=== PATIENT | male | born 1935 | race Caucasian/White ===

== ENCOUNTER → 2017-06-11 | Outpatient (CLI) | payer OTHER ==
[~2017-06-11] MED LIST: ASPI-110 PO; MULT-65 PO; PERC5TAB12 PO; SIMV40TA PO; ZETI10TA5 PO
--- NOTE | 2017-06-11 14:46 | RADRPT ---
EXAM DATE/TIME: 06/11/2017 12:50 [place] COMPARISON: No previous studies available for comparison. INDICATIONS : Evaluate for pneumonia, pneumothorax, or communicable disease. Pre op for EVAR revision. MEDICAL HISTORY : Aneurysm, abdominal. SURGICAL HISTORY : Stent. ENCOUNTER: Initial ACUITY: 1 day PAIN SCORE: 0/10 LOCATION: Bilateral chest FINDINGS: PA and lateral views of the chest demonstrate the lungs to be symmetrically aerated without evidence of mass, infiltrate or effusion. The cardiomediastinal contours are unremarkable. Osseous structure s are intact. CONCLUSION: No acute disease. Mando Bolaños MD on June 11, 2017 at 14:44 Board Certified Radiologist. This report was verified electronically.
--- NOTE | 2017-06-12 13:00 | EKG ---
Date Performed: 06/11/2017 Time Performed: 12:15:24 PTAGE: 82 years EKG: Sinus rhythm NORMAL ECG NO PREVIOUS TRACING DOCTOR: Bam Steele Interpretating Date/Time 06/12/2017 12:51:44
== END ==
LOC: CPRE 11:59
PROVIDERS: ATTEND Surgery
DX: Z01.810 Encounter for preprocedural cardiovascular examination (principal); Z01.812 Encounter for preprocedural laboratory examination; I71.4 Abdominal aortic aneurysm, without rupture; I72.3 Aneurysm of iliac artery
CPT/HCPCS: 71020; 93005

== ENCOUNTER 2017-06-23 06:08 | Inpatient (IN) | payer OTHER, MEDICARE ==
[~2017-06-23] VITALS: Ht 180.3 cm; Wt 76.0 kg
[2017-06-23] VITALS (14 sets, daily range): BP systolic 126–144; BP diastolic 64–75; PULSE 68–80; RESP 16–18; TEMP 97.5–99; O2SAT 95–98
[~2017-06-23 06:08] MED LIST changes: -PERC5TAB12 PO
[2017-06-23] MEDS ORDERED: THROMBIN (TOPICAL) 20,000 UNIT SPRAY KIT ONE (06:22)
[2017-06-23] MEDS ORDERED: BUPIVACAINE HCL PF 0.5% 30 ML VIAL ONE (06:22)
[2017-06-23] MEDS ORDERED: HEPARIN-NS/PF INJ 1,000 ML ONE (06:22)
[2017-06-23] MEDS ORDERED: PROTAMINE SULFATE 50 MG/5 ML VIAL ONE ×2 (06:28→11:17)
[2017-06-23] MEDS ORDERED: HEPARIN SODIUM - IV 10,000 UNITS/10 ML VIAL ONE (06:28)
[2017-06-23] MEDS ORDERED: SODIUM CHLORID 0.9% 500 ML IV PRN (06:30)
[2017-06-23] MEDS ORDERED: LACTATED RINGER'S 1000 ML IV PRN (06:30)
[2017-06-23] MEDS ORDERED: INSULIN HUMAN REGULAR 1,000 UNITS/10 ML VIAL SQ PRN (06:30)
[2017-06-23] MEDS ORDERED: CHLORHEXIDINE GLUCONATE 2 % 1 PACK (2 CLOTHS) TOPICAL PRN (06:30)
[2017-06-23] MEDS ORDERED: POVIDONE IODINE 5% (ANTISEPSIS KIT) 4 APPLICATIONS EACH NARE PRN (06:30)
[2017-06-23] MEDS ORDERED: METOPROLOL TARTRATE 25 MG TAB PO PRN (06:30)
[2017-06-23 07:39] LABS: AUTOMATED NEUTROPHIL # 3.3 TH/MM3 (1.8-7.7); BASOPHIL % 0.8 % (0.0-2.0); EOSINOPHIL # 0.2 TH/MM3 (0-0.4); EOSINOPHIL % 4.2 % (0.0-4.0); HEMATOCRIT 37.5 % (39.0-51.0); HEMO FLAGS DIFF FINAL; LYMPH % 27.6 % (9.0-44.0); LYMPHOCYTE # 1.6 TH/MM3 (1.0-4.8); MEAN CELL VOLUME 89.3 FL (80.0-100.0); MEAN CORPUSCULAR HEMOGLOBIN 30.3 PG (27.0-34.0); MEAN CORPUSCULAR HGB CONC 33.9 % (32.0-36.0); MONO % 8.9 % (0.0-8.0); NEUT % 58.5 % (16.0-70.0); PLATELET COUNT 101 TH/MM3 (150-450); RED CELL DISTRIBUTION WIDTH 13.4 % (11.6-17.2); WHITE BLOOD COUNT 5.7 TH/MM3 (4.0-11.0)
[2017-06-23] MEDS ORDERED: ACETAMINOPHEN 1000 MG/100 ML 100 ML IV ONE (08:16)
[2017-06-23] MEDS ORDERED: ceFAZolin 2 GM PREMIX 50 ML ONE (08:34)
--- NOTE | 2017-06-23 08:42 | HHI.HP ---
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 Presents for repair. During initial EVAR, had L hypo embolization so a plan has been devised to preserve RIGHT hypogastric artery potentially. Past/Family/Social History Past Medical History AAA HTN prostate CA Past Surgical History EVAR prostate CA surgery Social History not smoking Family History NC Home Medications Reported Medications Multiple Vitamin (Multi-Vitamin Daily) 1 Tab Tab, 1 TAB PO DAILY for Nutritional Supplement, TAB 0 Refills 06/11/[address] (Aspirin 81) 81 Mg Tabdr, 81 MG PO DAILY, TAB 0 Refills 06/11/17 Simvastatin (Simvastatin) 40 Mg Tab, 40 MG PO HS for Cholesterol Management, # 30 TAB 0 Refills 06/11/17 Ezetimibe (Zetia) 10 Mg Tab, 10 MG PO DAILY, #30 TAB 0 Refills 06/11/17 Coded Allergies: No Known Allergies (Unverified , 06/23/17) Review of Systems Constitutional: DENIES: Diaphoretic episodes, Fatigue, Fever, Weight gain, Weight loss, Chills, Dizziness, Change in appetite, Night Sweats Respiratory: DENIES: Apneas, Cough, Snoring, Wheezing, Hemoptysis, Sputum production, Shortness of breath Cardiovascular: DENIES: Chest pain, Palpitations, Syncope, Dyspnea on Exertion , PND, Lower Extremity Edema, Orthopnea, Claudication Physical Exam Vitals/I&O Date Time Temp Pulse Resp B/P (MAP) Pulse Ox O2 Delivery O2 Flow Rate FiO2 06/23/17 07:18 97.8 60 16 173/90 (117) 99 Neuro: alert, pleasant HEENT: NC/AT Neck: no JVD Heart: reg rate, no M Lungs: clear B Abdomen: lower midline incision healed Vascular: palpable B femoral pulses Extremities: R medial thigh bruise from plywood, skin intact Laboratory Tests Test 06/23/17 07:17 White Blood Count 5.7 Red Blood Count 4.20 Hemoglobin 12.7 Hematocrit 37.5 Mean Corpuscular Volume 89.3 Mean Corpuscular Hemoglobin 30.3 Mean Corpuscular Hemoglobin Concent 33.9 Red Cell Distribution Width 13.4 Platelet Count 101 Mean Platelet Volume 8.9 Neutrophils (%) (Auto) 58.5 Lymphocytes (%) (Auto) 27.6 Monocytes (%) (Auto) 8.9 Eosinophils (%) (Auto) 4.2 Basophils (%) (Auto) 0.8 Neutrophils # (Auto) 3.3 Lymphocytes # (Auto) 1.6 Monocytes # (Auto) 0.5 Eosinophils # (Auto) 0.2 Basophils # (Auto) 0.0 CBC Comment DIFF FINAL Differential Comment CTA reviewed Caprini VTE Risk Assessment Caprini VTE Risk Assessment: Mod/High Risk (score >= 2) Caprini Risk Assessment Model Point Value = 1 Point Value = 2 Point Value = 3 Point Value = 5 Age 41-60 Minor surgery BMI > 25 kg/m2 Swollen legs Varicose veins or History of unexplained or recurrent spontaneous Oral contraceptives or hormone replacement Sepsis (< 1 month) Serious lung disease, including pneumonia (< 1 month) Abnormal pulmonary function Acute myocardial infarction Congestive heart failure (< 1 month) History of inflammatory bowel disease Medical patient at bed rest Age 61-74 Arthroscopic surgery Major open surgery (> 45 min) Laparoscopic surgery (> 45 min) Malignancy Confined to bed (> 72 hours) Immobilizing plaster cast Central venous access Age >= 75 History of VTE Family history of VTE Factor V Leiden Prothrombin [id number] Lupus anticoagulant Anticardiolipin antibodies Elevated serum homocysteine Heparin-induced thrombocytopenia Other congenital or acquired thrombophilia Stroke (< 1 month) Elective arthroplasty Hip, pelvis, or leg fracture Acute spinal cord injury (< 1 month) Prophylaxis Regimen Total Risk Factor Score Risk Level Prophylaxis Regimen 0-1 Low Early ambulation 2 Moderate Order ONE of the following: *Sequential Compression Device (SCD) *Heparin 5000 units SQ BID 3-4 Higher Order ONE of the following medications: *Heparin 5000 units SQ TID *Enoxaparin/Lovenox 40 mg SQ daily (WT < 150 kg, CrCl > 30 mL/min) *Enoxaparin/Lovenox 30 mg SQ daily (WT < 150 kg, CrCl > 10-29 mL/min) *Enoxaparin/Lovenox 30 mg SQ BID (WT < 150 kg, CrCl > 30 mL/min) AND/OR *Sequential Compression Device (SCD) 5 or more Highest Order ONE of the following medications: *Heparin 5000 units SQ TID (Preferred with Epidurals) *Enoxaparin/Lovenox 40 mg SQ daily (WT < 150 kg, CrCl > 30 mL/min) *Enoxaparin/Lovenox 30 mg SQ daily (WT < 150 kg, CrCl > 10-29 mL/min) *Enoxaparin/Lovenox 30 mg SQ BID (WT < 150 kg, CrCl > 30 mL/min) AND *Sequential Compression Device (SCD) Assessment and Plan Plan complex EVAR with attempted hypogastric preservation To OR [phone] Discharge Planning likely 1-2 days Mando Mccray MD Jun 23, 2017 08:42
[2017-06-23] MEDS ORDERED: HYDROmorphone HCL 2 MG TAB PO PRN (11:45)
[2017-06-23] MEDS ORDERED: DO NOT ADM ANY ANTICOAGULANT DRUGS PRN (12:04)
--- NOTE | 2017-06-23 12:11 | HHI.PR ---
Immediate Post Op Note Procedure Date: Jun 23, 2017 Pre Op Diagnosis: R SISSY aneurysm Post Op Diagnosis: R SISSY aneurysm Surgeon: Mando Mccray [employer]el Locomotive Firer(s): Laverne Melendez Procedure: 1. Iliac branched EVAR with R hypogastric stent 2. R NUISANCE WILDLIFE SPECIALIST Perclose 3. L Axillary cutdown Findings: successful exclusion of iliac aneurysm with preservation of R hypogastric artery Additional Information: palpable L radial pulse and B Doppler signals in feet Complications: none apparent Specimen(s) removed: none Estimated blood loss: 50mL Anesthesia: General Drains: None Fluids: 1300mL x'oid; 300mL UOP IVF Patient to: PACU Patient Condition: Good Implant/Devices: SEE IMPLANT LOG (if applicable) Date/Time of Procedure: SEE SURGICAL CARE RECORD Mando Mccray MD Jun 23, 2017 11:44
[2017-06-23] MEDS ORDERED: D5-1/2 NS + KCL 20 MEQ INJ 1,000 ML IV SCH (13:30)
[2017-06-23] MEDS: DOCUSATE SODIUM 100 MG CAP PO SCH (20:38)
[2017-06-23] MEDS ORDERED: PRAVASTATIN SOD 80 MG TAB PO SCH (21:00)
[2017-06-24] VITALS (9 sets, daily range): BP systolic 130–154; BP diastolic 62–73; PULSE 68–84; RESP 12–16; TEMP 98.7–98.8; O2SAT 95–96
[2017-06-24 06:52] LABS: HEMATOCRIT 34.2 % (39.0-51.0); MEAN CORPUSCULAR HEMOGLOBIN 30.6 PG (27.0-34.0); PLATELET COUNT 93 TH/MM3 (150-450); RED CELL DISTRIBUTION WIDTH 13.5 % (11.6-17.2); WHITE BLOOD COUNT 7.2 TH/MM3 (4.0-11.0)
[2017-06-24 07:02] LABS: POTASSIUM 4.1 MEQ/L (3.5-5.1)
[2017-06-24 07:07] LABS: REVIEW FLAG FINAL
[2017-06-24] MEDS: DOCUSATE SODIUM 100 MG CAP PO SCH (08:49)
[2017-06-24] MEDS ORDERED: MULTIVITAMIN TAB PO SCH (09:00)
[2017-06-24] MEDS ORDERED: EZETIMIBE 10 MG TAB PO SCH (09:00)
[2017-06-24] MEDS ORDERED: ASPIRIN EC 81 MG TABEC PO SCH (09:00)
[2017-06-24] MEDS ORDERED: PERC5TAB12 PO (09:07)
--- NOTE | 2017-06-24 09:22 | PD.VS.PN ---
Subjective POD #: 1 Procedure(s): Iliac branched EVAR with R hypogastric stent R RESEARCH EDITOR Perclose L Axillary cutdown Subjective/Hospital Course Pt sitting in bed w/o complaints Young removed Pt denies abdominal/back pain Pt denies Right groin discomfort (no hematoma present) Objective Vitals/I&O Date Time Temp Pulse Resp B/P (MAP) Pulse Ox O2 Delivery O2 Flow Rate FiO2 06/24/17 07:00 70 06/24/17 06:00 68 06/24/17 05:00 78 06/24/17 04:00 76 06/24/17 03:00 74 06/24/17 03:00 98.8 81 12 130/62 (84) 95 06/24/17 02:00 78 06/24/17 01:30 16 06/24/17 01:00 76 06/24/17 00:00 76 06/23/17 23:00 80 06/23/17 23:00 99.0 69 16 134/66 (88) 95 06/23/17 22:00 76 06/23/17 21:00 74 06/23/17 20:00 72 06/23/17 19:45 97.6 69 16 144/75 (98) 98 06/23/17 19:00 74 06/23/17 18:00 72 142/75 (97) 06/23/17 18:00 68 06/23/17 17:30 74 139/74 (95) 06/23/17 17:00 72 139/69 (92) 06/23/17 16:30 76 135/70 (91) 06/23/17 16:15 74 126/71 (89) 06/23/17 16:00 76 130/67 (88) 06/23/17 15:45 74 126/64 (84) 06/23/17 15:30 74 06/23/17 15:30 97.5 75 18 138/72 (94) 97 06/23/17 15:20 97.5 74 16 120/59 (79) 95 Room Air 06/23/17 15:00 75 16 123/60 (81) 95 Room Air 06/23/17 14:00 77 16 122/60 (80) 95 Room Air 06/23/17 13:30 72 16 128/59 (82) 94 Room Air 06/23/17 13:15 74 16 130/57 (81) 94 Room Air 06/23/17 13:00 97.4 75 16 133/60 (84) 94 Room Air 06/23/17 12:45 71 15 139/64 (89) 100 Nasal Cannula 3 06/23/17 12:30 70 15 145/61 (89) 99 Nasal Cannula 3 06/23/17 12:15 74 15 137/60 (85) 98 Nasal Cannula 3 06/23/17 12:00 97.0 75 20 147/63 (91) 98 Nasal Cannula 3 131/59 (83) 06/24/17 06/24/17 06/24/17 07:00 15:00 23:00 Intake Total 480 ml Output Total 1250 ml Balance -770 ml Exam: GENERAL: Afebrile 82/W/M pleasant w/o complaints SKIN: Warm and dry Right groin w/o pain/swelling/hematoma Left axilla incision with surgical glue closure intact w/o S/R/P, mild ecchymosis present near incision line CARDIOVASCULAR: +S1,S2 RESPIRATORY: Breath sounds equal bilaterally. No accessory muscle use. GASTROINTESTINAL: Abdomen soft, non-tender, nondistended. Pt denies back/ abdominal pain Laboratory Laboratory Tests Test 06/24/17 05:30 White Blood Count 7.2 Red Blood Count 3.80 Hemoglobin 11.6 Hematocrit 34.2 Mean Corpuscular Volume 90.0 Mean Corpuscular Hemoglobin 30.6 Mean Corpuscular Hemoglobin Concent 34.0 Red Cell Distribution Width 13.5 Platelet Count 93 Mean Platelet Volume 9.0 Blood Urea Nitrogen 14 Creatinine 1.17 Random Glucose 118 Calcium Level 8.2 Sodium Level 141 Potassium Level 4.1 Chloride Level 108 Carbon Dioxide Level 27.0 Anion Gap 6 Estimat Glomerular Filtration Rate 60 Assessment and Plan Plan POD 1 Iliac branched EVAR with R hypogastric stent Presents well w/o complaints or complications Plan D/C today after voiding (post catheter removal)/ per protocol Arranged post op f/u with a surveillance CTA a/p Reviewed post operative d/c instructions w/ patient Call if patient unable to void (six hours post cath removal) Estefany ARAGON [facility]/[place] [phone] Discharge Planning Today (home) Estefany Garcia Jun 24, 2017 09:22
--- NOTE | 2017-06-24 09:30 | PD.VS.DC ---
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 Presents for repair. During initial EVAR, had L hypo embolization so a plan has been devised to preserve RIGHT hypogastric artery potentially. Procedure(s): liac branched EVAR with R hypogastric stent R SITE COORDINATOR Perclose L Axillary cutdown Significant Findings GENERAL: Afebrile 82/W/M pleasant w/o complaints SKIN: Warm and dry Right groin w/o pain/swelling/hematoma Left axilla incision with surgical glue closure intact w/o S/R/P, mild ecchymosis present near incision line CARDIOVASCULAR: +S1,S2 RESPIRATORY: Breath sounds equal bilaterally. No accessory muscle use. GASTROINTESTINAL: Abdomen soft, non-tender, nondistended. Pt denies back/ abdominal pain Laboratory Tests Test 06/23/17 07:17 06/24/17 05:30 Red Blood Count 4.20 MIL/MM3 (4.50-5.90) 3.80 MIL/MM3 (4.50-5.90) Hemoglobin 12.7 GM/DL (13.0-17.0) 11.6 GM/DL (13.0-17.0) Hematocrit 37.5 % (39.0-51.0) 34.2 % (39.0-51.0) Platelet Count 101 TH/MM3 (150-450) 93 TH/MM3 (150-450) Monocytes (%) (Auto) 8.9 % (0.0-8.0) Eosinophils (%) (Auto) 4.2 % (0.0-4.0) Random Glucose 118 MG/DL (74-106) Calcium Level 8.2 MG/DL (8.5-10.1) Chloride Level 108 MEQ/L (98-107) Estimat Glomerular Filtration Rate 60 ML/MIN (>89) Hospital Course: 82 yo male with EVAR several years ago at OSH and 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 Presents for repair. During initial EVAR, had L hypo embolization so a plan has been devised to preserve RIGHT hypogastric artery potentially. Pt s/p POD 1 Iliac branched EVAR with R hypogastric stent/R SITE COORDINATOR Perclose/L Axillary cutdown Pt doing well w/o complications Denies abdominal/back pain Arranged post op follow up Allergies Coded Allergies Type Severity Reaction Last Updated Verified No Known Allergies 06/23/17 No 06/22/17 06/22/17 06/23/17 06/23/17 06/24/17 06/24/17 06:00 18:00 06:00 18:00 06:00 18:00 Intake Total 1785 ml 480 ml Output Total 1500 ml 1250 ml Balance 285 ml -770 ml Intake Oral 200 ml 480 ml IV Total 285 ml Other 1300 ml Output Urine Total 1450 ml 1250 ml Estimated Blood Loss 50 ml # Bowel Movements 0 Laboratory Tests Test 06/23/17 07:17 06/24/17 05:30 White Blood Count 5.7 TH/MM3 7.2 TH/MM3 Red Blood Count 4.20 MIL/MM3 3.80 MIL/MM3 Hemoglobin 12.7 GM/DL 11.6 GM/DL Hematocrit 37.5 % 34.2 % Mean Corpuscular Volume 89.3 FL 90.0 FL Mean Corpuscular Hemoglobin 30.3 PG 30.6 PG Mean Corpuscular Hemoglobin Concent 33.9 % 34.0 % Red Cell Distribution Width 13.4 % 13.5 % Platelet Count 101 TH/MM3 93 TH/MM3 Mean Platelet Volume 8.9 FL 9.0 FL Neutrophils (%) (Auto) 58.5 % Lymphocytes (%) (Auto) 27.6 % Monocytes (%) (Auto) 8.9 % Eosinophils (%) (Auto) 4.2 % Basophils (%) (Auto) 0.8 % Neutrophils # (Auto) 3.3 TH/MM3 Lymphocytes # (Auto) 1.6 TH/MM3 Monocytes # (Auto) 0.5 TH/MM3 Eosinophils # (Auto) 0.2 TH/MM3 Basophils # (Auto) 0.0 TH/MM3 CBC Comment DIFF FINAL Differential Comment Blood Urea Nitrogen 14 MG/DL Creatinine 1.17 MG/DL Random Glucose 118 MG/DL Calcium Level 8.2 MG/DL Sodium Level 141 MEQ/L Potassium Level 4.1 MEQ/L Chloride Level 108 MEQ/L Carbon Dioxide Level 27.0 MEQ/L Anion Gap 6 MEQ/L Estimat Glomerular Filtration Rate 60 ML/MIN Orders Procedure Category Date Status Time Heparin-Ns/Pf Inj MED 06/23/17 Complete (Heparin-Ns/Pf Inj) 06:22 Bupivacaine Pf 0.5% MED 06/23/17 Complete Inj (Marcaine Pf 0.5 06:22 Thrombin Top Irving MED 06/23/17 Complete (Thrombin Top Irving) 06:22 Type And Screen BBK 06/23/17 Complete 06:25 Complete Blood Count LAB 06/23/17 Complete With Diff 06:25 Heparin Inj (Heparin MED 06/23/17 Complete Inj) 06:28 Protamine Sulfate Inj MED 06/23/17 Complete (Protamine Sulfate 06:28 Lactated Ringer's MED 06/23/17 Complete 1000 Ml Inj (Lr 1000 M 06:30 Sodium Chlorid 0.9% MED 06/23/17 Complete 500 Ml Inj (Ns 500 M 06:30 Metoprolol Tartrate MED 06/23/17 In Process (Lopressor) 06:30 Povidone Iod 5% MED 06/23/17 In Process Antisepsis Kit 06:30 Chlorhexidine 2% MED 06/23/17 In Process Cloth (Chlorhexidine 06:30 Insulin Human Regular MED 06/23/17 In Process Inj (Novolin R Inj 06:30 Red Blood Cells (Rbc) BBK 06/23/17 In Process 07:06 Endovascular Cath CATH 06/23/17 Logged Acetaminophen 1000 MED 06/23/17 Complete Mg/100 Ml (Ofirmev 10 08:16 Cefazolin 2 Gm Premix MED 06/23/17 Complete (Ancef 2 Gm Premix 08:34 Urinary Catheter KATIE 06/23/17 Complete Management 09:41 Am Admit Pre Op Care [facility] 06/23/17 Complete Protamine Sulfate Inj MED 06/23/17 Complete (Protamine Sulfate 11:17 Admit To Inpatient ADMITTING 06/23/17 Transmitted Code Status CODE 06/23/17 Transmitted 11:44 Vital Signs (Adult) KATIE 06/23/17 In Process 11:44 [place] / KATIE 06/23/17 Complete Telemetry 11:44 Activity Oob Ad Virgie KATIE 06/24/17 In Process 08:00 Activity Bed Rest KATIE 06/23/17 In Process 11:[address] Chavez KATIE 06/23/17 In Process 11:44 Precautions KATIE 06/23/17 In Process 11:44 Diet Heart Healthy DIET 06/23/17 Transmitted Lunch Basic Metabolic Panel LAB 06/24/17 Complete (Bmp) 06:00 Cbc No Diff, Includes LAB 06/24/17 Complete Plts 06:00 D5-1/2 Ns + Kcl 20 MED 06/23/17 In Process Meq Inj (D5-1/2 Ns + 13:30 Oxycodone (Roxicodone) MED 06/23/17 In Process 11:45 Hydromorphone MED 06/23/17 In Process (Dilaudid) 11:45 Docusate Sodium MED 06/23/17 In Process (Colace) 21:00 Scd Bilateral/Knee KATIE 06/23/17 In Process High 11:44 Inpatient ADMITTING 06/23/17 Transmitted Certification Remove Urinary KATIE 06/24/17 In Process Catheter 06:00 Aspirin Ec (Ecotrin MED 06/24/17 In Process Ec) 09:00 Ezetimibe (Zetia) MED 06/24/17 In Process 09:00 Multivitamin MED 06/24/17 In Process (Theragran) 09:00 Pravastatin MED 06/23/17 In Process (Pravachol) 21:00 Venipuncture [facility] 06/23/17 Complete Enoxaparin Inj MED 06/24/17 In Process (Lovenox Inj) 11:00 Misc Nursing MED 06/23/17 In Process Information 12:04 Class Iv [facility]17 Complete MIN General/Pacu [facility] 06/23/17 Complete Post Anesthesia Oxygen [facility] 06/23/17 Complete Pacu Cpcu Holding [facility] 06/23/17 Complete Hourly Instruction [facility] 06/24/17 In Process 05:16 Attending Discharge DISCHARGE 06/24/17 Transmitted Order (Hub Use Only)Inp Phy CONS 06/24/17 Transmitted Cons/Ref Vital Signs Date Time Temp Pulse Resp B/P (MAP) Pulse Ox O2 Delivery O2 Flow Rate FiO2 06/24/17 07:00 70 06/24/17 06:00 68 06/24/17 05:00 78 06/24/17 04:00 76 06/24/17 03:00 74 06/24/17 03:00 98.8 81 12 130/62 (84) 95 06/24/17 02:00 78 06/24/17 01:30 16 06/24/17 01:00 76 06/24/17 00:00 76 06/23/17 23:00 80 06/23/17 23:00 99.0 69 16 134/66 (88) 95 06/23/17 22:00 76 06/23/17 21:00 74 06/23/17 20:00 72 06/23/17 19:45 97.6 69 16 144/75 (98) 98 06/23/17 19:00 74 06/23/17 18:00 72 142/75 (97) 06/23/17 18:00 68 06/23/17 17:30 74 139/74 (95) 06/23/17 17:00 72 139/69 (92) 06/23/17 16:30 76 135/70 (91) 06/23/17 16:15 74 126/71 (89) 06/23/17 16:00 76 130/67 (88) 06/23/17 15:45 74 126/64 (84) 06/23/17 15:30 74 06/23/17 15:30 97.5 75 18 138/72 (94) 97 06/23/17 15:20 97.5 74 16 120/59 (79) 95 Room Air 06/23/17 15:00 75 16 123/60 (81) 95 Room Air 06/23/17 14:00 77 16 122/60 (80) 95 Room Air 06/23/17 13:30 72 16 128/59 (82) 94 Room Air 06/23/17 13:15 74 16 130/57 (81) 94 Room Air 06/23/17 13:00 97.4 75 16 133/60 (84) 94 Room Air 06/23/17 12:45 71 15 139/64 (89) 100 Nasal Cannula 3 06/23/17 12:30 70 15 145/61 (89) 99 Nasal Cannula 3 06/23/17 12:15 74 15 137/60 (85) 98 Nasal Cannula 3 06/23/17 12:00 97.0 75 20 147/63 (91) 98 Nasal Cannula 3 131/59 (83) 06/23/17 07:18 97.8 60 16 173/90 (117) 99 Discharge Condition: Good Discharge Disposition: Discharge Home Discharge Instructions: Activities as tolerated May shower tomorrow am Do not apply any creams or ointments to L axillary incision Leave incision open to air Report right groin swelling or sudden onset pain Report any new onset redness/drainage/fever or chills Report new onset abdominal/back pain Call the office with any questions or concerns Follow up in 1M with a surveillance CTA A/P Estefany ARAGON [facility]/[place] [phone] Any questions or concerns: Call [facility] [phone] Estefany Garcia Jun 24, 2017 09:30
[2017-06-24] MEDS ORDERED: ENOXAPARIN SODIUM 30 MG/0.3 ML SYRINGE SQ SCH (11:00)
--- NOTE | 2017-06-24 23:03 | MP ---
cc: GABRIEL MCCRAY MD DATE OF SURGERY 06/23/17 PREOPERATIVE DIAGNOSIS Right common iliac artery aneurysm. POSTOPERATIVE DIAGNOSIS Right common iliac artery aneurysm. PROCEDURE 1. Right common iliac artery endovascular repair including iliac branch device. 2. Right hypogastric artery stent with [place] Viabahn VBX, 8 x 59, 8 x 79. 3. Right common femoral artery Perclose. 4. Left axillary artery cutdown. ATTENDING SURGEON Gabriel Mccray MD DRILL DOCTOR SURGEON Laverne Melendez ANESTHESIA General. INDICATIONS Mr. Streeter is an 82-year-old gentleman with a history of an abdominal aortic aneurysm and common iliac artery aneurysms, repaired endovascular. This necessitated a left hypogastric artery embolization at an outside institution. He presented with malposition, no fixation of his right limb as well as the right common iliac artery aneurysm. We talked about his anatomy and the best solution I could come up with was an endovascular repair using an iliac branch device that would both exclude the aneurysm and preserve the hypogastric artery. DESCRIPTION OF PROCEDURE Informed consent obtained. The patient is taken to the operating room and placed supine on the operating table. Appropriate time-out was taken to ensure the patient's identity, the operative site and the planned procedure. The administration of 2 grams of Ancef was initiated prior to skin incision and will be discontinued after single preoperative dose. Everyone in the room agreed with time-out and we proceeded. His left arm including axilla was prepped and draped as well as his nipples to knees. A 21 gauge micropuncture needle was used to access the right common femoral artery. This was exchanged using Seldinger technique for micropuncture sheath through which a 0.05 Storq wire was introduced and a micropuncture sheath was exchanged for a 5-Israeli sheath. The 5-Israeli sheath was used to dilate skin, subcutaneous traction arteriotomy and then two Perclose ProGlide sutures were inserted and tagged. These were not used but will be used later. An 8-Israeli sheath was introduced over the Storq wire. An incision was made in the left axilla, carried down to the subcutaneous tissue with electrocautery. The axillary artery was identified and dissected free and encircled with a vessel loop. The patient systemically heparinized and throughout the remainder of the case. ACT was confirmed to be greater than 250. A 21 gauge micropuncture needle was used to access the axillary artery. This was exchanged using Seldinger technique for micropuncture sheath for which a 0.035 Glidewire was introduced. The micropuncture sheath was exchanged for a 5-Israeli sheath and a pigtail catheter was placed over the wire and through the sheath and used to navigate the Glidewire and pigtail down into the descending thoracic aorta and abdominal aorta. The glide was exchanged and a Ocampo wire was introduced and the pigtail catheter and the 5-Israeli sheath were removed and an 8-Israeli 60 cm sheath was advanced from the axillary artery down to the right common iliac artery. Through the 8-Israeli sheath in the right groin a catheter was then placed in the proximal descending thoracic aorta and the Storq wire was exchanged for a Lunderquist. The catheter was removed, 8-Israeli sheath was removed. Hien dilators were used to dilate the skin, subcutaneous traction arteriotomy to a 16-Israeli sheath which was placed without difficulty. A snare was placed through the 16-Israeli sheath after removing the Lunderquist wire and the Glidewire from the 8-Israeli 60 cm sheath and the left axilla was snared out through the groin and back loaded onto the device. The device was a [place] Iliac branch device 23 x 12 x 10 and it was loaded up antegrade on to the Lunderquist wire and the branch device was back loaded with the Glidewire. Keeping the graft in an appropriate orientation it was passed through the DrySeal sheath and then the device was advanced into the common iliac artery. Angiogram showed the right common iliac artery bifurcation. The graft was deployed down to the iliac branch device. Then over the Glidewire and through the 8-Israeli 60 cm sheath in the axilla a Combicatheter was placed. The Glidewire was then pulled back and advanced down into the hypogastric artery branches. The Combicatheter was advanced over this and the glide was exchanged for a Ocampo which was passed through the axillary sheath. With the distal aspect the main body still constrained in the external iliac artery. The proximal Viabahn VBX which was an 8 x 79 was deployed with sufficient overlap to seal into the main body graft and this was postdilated to 12 mm. A second Viabahn was then placed more distally and this was an 8 x 59 and again postdilated to 12 mm. Completion angiogram showed no graft to graft endoleak and only minimal malapposition distally immediately proximal to the bifurcation of the hypogastric artery into the superior and inferior gluteal arteries. The remainder of the main device was deployed and the main device delivery system was withdrawn and an iliac extension piece which was a [place] excluder 16 x 12 x 70 limb was introduced. This was deployed with sufficient overlap down into the distal external iliac artery. All these junctions were then ballooned with a Q50 balloon and kissing balloons and the iliac bifurcation device were performed using the Q50 from the groin and the 12-mm balloon from the axillary artery. Completion angiogram showed excellent exclusion of the common iliac artery aneurysm. Excellent maintenance of the hypogastric artery perfusion and only a distal malposition of the Endograft but no back filling into an endoleak. The wire catheter and sheath were removed from the groin. The groin Percloses were tied down and hemostasis was achieved. There was nice Doppler signal in the foot and the heparin was reversed with protamine. Manual pressure was placed on the groin. In the axilla the 8-Israeli sheath was removed and 5 and 6-0 Prolene sutures used to repair the axillary artery. There was a nice radial pulse and the wound was irrigated, infiltrated with Marcaine and closed with 2-0 Polysorb, 3-0 Polysorb and 4-0 Monocryl. The sponge, needle counts were correct at the end of the case. I was present and scrubbed for the entire procedure. MD TAQUERIA Mchugh/OJSE /2:32 PM /10:31 PM TRUDI
== END 2017-06-24 11:07 | disposition home or self-care (01) | DRG 271 ==
LOC: HSDI 06:08 → HCIN 15:30
PROVIDERS: ADMIT Surgery; ATTEND Surgery
PROC: 04VC3EZ Restriction of Right Common Iliac Artery with Branched or Fenestrated Intraluminal Device, One or Two Arteries, Percutaneous Approach (ICD-10-PCS; principal; 2017-06-23 08:51)
DX: I72.3 Aneurysm of iliac artery (principal); T82.328A Displacement of other vascular grafts, initial encounter; I73.9 Peripheral vascular disease, unspecified; I10 Essential (primary) hypertension; E78.5 Hyperlipidemia, unspecified; I25.10 Atherosclerotic heart disease of native coronary artery without angina pectoris; Z85.46 Personal history of malignant neoplasm of prostate
CPT/HCPCS: 36415; 80048; 85025; 85027; 86850; 86900; 86901; 86920; J0131; J0690; J1644; J2720; J3480; J7120